=== PATIENT | male | born 1950 | race Caucasian/White ===

== ENCOUNTER 2016-06-23 17:24 | Inpatient (IN) | payer OTHER ==
[~2016-06-23] VITALS: Ht 167.6 cm; Wt 68.5 kg
[2016-06-23 19:04] LABS: PLATELET COUNT 318 x10^3mcL (130-400)
[2016-06-23 19:09] LABS: CALCIUM 8.8 mg/dL (8.5-10.1); CARBON DIOXIDE 27.8 mmol/L (21-32); CREATININE SERUM 1.6 mg/dL (0.7-1.3); POTASSIUM SERUM 4.3 mmol/L (3.5-5.1)
[2016-06-23 19:13] LABS: TOTAL PROTEIN, SERUM 6.2 g/dL (6.4-8.2)
[2016-06-23 19:16] LABS: RED CELL DISTRIBUTION WIDTH 16.8 % (11.5-14.5)
[2016-06-23 19:23] LABS: BAND NEUTROPHIL 2 % (0-10); BASOPHIL 0 % (0-2); MONOCYTE 4 % (0-7); SEGMENTED NEUTROPHILS 76 % (37-75)
[2016-06-23 19:24] LABS: rbc morphology (normal/abnorm) ABNORMAL (NORMAL)
[2016-06-23 19:25] LABS: ALBUMIN 2.8 g/dL (3.4-5.0); BILIRUBIN TOTAL 24.79 mg/dL (0.20-1.00)
[2016-06-23 19:37] LABS: CK-MB 0.6 ng/mL (0-3.6)
[2016-06-23 20:08] LABS: UA SPECIFIC GRAVITY 1.025 (1.005-1.035); microscopic required? YES; urine erythrocyte NEGATIVE (NEGATIVE)
[2016-06-23] MEDS ORDERED: METFORMIN HCL500 MG PO (20:32)
[2016-06-23 21:30] LABS: FREE T4 1.23 ng/dL (0.76-1.46); FREE THYROXINE INDEX 2.4 ug/dL (1.4-4.5); T4(THYROXINE) 7.4 ug/dL (4.7-13.3)
[2016-06-23 21:31] LABS: T3 TOTAL 0.93 ng/mL
[2016-06-23 21:45] VITALS: BP 111/61
[2016-06-23 22:04] VITALS: BP 111/61
[2016-06-24 02:32] LABS: IRON 50 ug/dL (65-170); TOTAL IRON BINDING CAPACITY 254 ug/dL (250-450)
[2016-06-24 03:34] LABS: RED BLOOD CELLS 3.16 M/mm3 (4.52-5.90)
[2016-06-24 05:39] VITALS: BP 99/56
[2016-06-24 06:07] LABS: PLATELET COUNT 289 x10^3mcL (130-400)
[2016-06-24 06:29] LABS: CALCIUM 8.6 mg/dL (8.5-10.1); CARBON DIOXIDE 26.5 mmol/L (21-32); CHLORIDE SERUM 103 mmol/L (98-107); CREATININE SERUM 1.1 mg/dL (0.7-1.3); GFR1 > 60 mL/min; GLUCOSE SERUM 106 mg/dL (74-106); MAGNESIUM 2.1 mg/dL (1.8-2.4); PHOSPHOROUS 3.8 mg/dL (2.5-4.9); POTASSIUM SERUM 3.9 mmol/L (3.5-5.1); SODIUM SERUM 137 mmol/L (136-145)
[2016-06-24 06:40] LABS: RED CELL DISTRIBUTION WIDTH 16.7 % (11.5-14.5)
[2016-06-24 08:43] VITALS: BP 96/50
[2016-06-24 12:13] LABS: ATYPICAL LYMPH 3 %; BAND NEUTROPHIL 2 % (0-10); BASOPHIL 0 % (0-2); MONOCYTE 11 % (0-7); SEGMENTED NEUTROPHILS 68 % (37-75)
[2016-06-24 12:14] LABS: PLATELET MORPHOLOGY PLATELETS NORMAL; rbc morphology (normal/abnorm) ABNORMAL (NORMAL); target cell (codocyte) 2+
[2016-06-24 13:05] VITALS: BP 99/55
[2016-06-24 16:35] VITALS: BP 99/61
[2016-06-24 22:20] VITALS: BP 110/56
[2016-06-25 06:09] LABS: PLATELET COUNT 293 x10^3mcL (130-400)
[2016-06-25 06:29] LABS: CALCIUM 8.6 mg/dL (8.5-10.1); CHLORIDE SERUM 102 mmol/L (98-107); CREATININE SERUM 0.9 mg/dL (0.7-1.3); GFR1 > 60 mL/min; GLUCOSE SERUM 121 mg/dL (74-106); PHOSPHOROUS 3.7 mg/dL (2.5-4.9); POTASSIUM SERUM 4.3 mmol/L (3.5-5.1); SODIUM SERUM 136 mmol/L (136-145)
[2016-06-25 06:33] VITALS: BP 95/53
[2016-06-25 09:48] VITALS: Ht 167.6 cm; Wt 68.5 kg
[2016-06-25 09:50] VITALS: BP 104/55
[2016-06-25 13:55] LABS: ATYPICAL LYMPH 1 %; BAND NEUTROPHIL 2 % (0-10); MONOCYTE 10 % (0-7); SEGMENTED NEUTROPHILS 74 % (37-75)
[2016-06-25 13:56] LABS: PLATELET MORPHOLOGY PLATELETS NORMAL; rbc morphology (normal/abnorm) ABNORMAL (NORMAL); target cell (codocyte) 1+
[2016-06-25 18:59] VITALS: BP 109/66
[2016-06-25 21:38] VITALS: BP 105/59
[2016-06-26 05:49] VITALS: BP 102/56
[2016-06-26 06:15] LABS: PLATELET COUNT 277 x10^3mcL (130-400)
[2016-06-26 06:30] LABS: ALKALINE PHOSPHATASE 618 U/L (46-116); ALT/SGPT 98 U/L (16-63); CALCIUM 8.4 mg/dL (8.5-10.1); CARBON DIOXIDE 29.8 mmol/L (21-32); CHLORIDE SERUM 103 mmol/L (98-107); GFR1 > 60 mL/min; GLUCOSE SERUM 115 mg/dL (74-106); POTASSIUM SERUM 4.6 mmol/L (3.5-5.1); SODIUM SERUM 138 mmol/L (136-145)
[2016-06-26 07:20] LABS: AST/SGOT 112 U/L (15-37)
[2016-06-26 07:26] LABS: ALBUMIN 2.1 g/dL (3.4-5.0); TOTAL PROTEIN, SERUM 5.2 g/dL (6.4-8.2)
[2016-06-26 07:34] LABS: BILIRUBIN TOTAL 23.1 mg/dL (0.20-1.00)
[2016-06-26 10:01] LABS: BAND NEUTROPHIL 2 % (0-10); BASOPHIL 0 % (0-2); MONOCYTE 6 % (0-7); SEGMENTED NEUTROPHILS 83 % (37-75)
[2016-06-26 10:02] LABS: rbc morphology (normal/abnorm) ABNORMAL (NORMAL)
[2016-06-26 10:03] LABS: target cell (codocyte) 2+
[2016-06-26 10:54] VITALS: BP 108/61
[2016-06-26] MEDS ORDERED: NOR10T PO (16:31)
[2016-06-26] MEDS ORDERED: LAC PO (16:32)
[2016-06-26] MEDS ORDERED: LEVAQUIN250 M1 PO (16:32)
[2016-06-26] MEDS ORDERED: THERA TABS1 TAB PO (16:33)
[2016-06-26] MEDS ORDERED: VITC PO (16:33)
[2016-06-26] MEDS ORDERED: METFORMIN HCL500 MG PO (16:33)
[2016-06-26 16:55] VITALS: BP 108/61
== END 2016-06-26 17:36 | disposition home or self-care (01) | DRG 435 ==
LOC: ED 17:24 → MU 20:06 → DU 20:06 → MU 06-25 07:03
PROVIDERS: Emergency Medicine; Internal Medicine Gastroenterology; ADMIT Family Medicine
PROC: BF10YZZ Fluoroscopy of Bile Ducts using Other Contrast (ICD-10-PCS; 2016-06-24)
PROC: 0F798ZZ Dilation of Common Bile Duct, Via Natural or Artificial Opening Endoscopic (ICD-10-PCS; principal; 2016-06-24 13:30)
PROC: 0F798ZZ Dilation of Common Bile Duct, Via Natural or Artificial Opening Endoscopic (ICD-10-PCS; 2016-06-24 13:30)
PROC: 0F768DZ Dilation of Left Hepatic Duct with Intraluminal Device, Via Natural or Artificial Opening Endoscopic (ICD-10-PCS; 2016-06-24 13:30)
PROC: 0FB13ZX Excision of Right Lobe Liver, Percutaneous Approach, Diagnostic (ICD-10-PCS; 2016-06-25)
DX: C22.1 Intrahepatic bile duct carcinoma (principal); K83.1 Obstruction of bile duct; N17.0 Acute kidney failure with tubular necrosis; E43 Unspecified severe protein-calorie malnutrition; N39.0 Urinary tract infection, site not specified; E87.1 Hypo-osmolality and hyponatremia; D68.69 Other thrombophilia; C22.8 Malignant neoplasm of liver, primary, unspecified as to type; E11.65 Type 2 diabetes mellitus with hyperglycemia; D63.8 Anemia in other chronic diseases classified elsewhere; E03.9 Hypothyroidism, unspecified; E78.5 Hyperlipidemia, unspecified; Z68.24 Body mass index [BMI] 24.0-24.9, adult; Z79.84 Long term (current) use of oral hypoglycemic drugs
CPT/HCPCS: 43262; 49180; 82962; 83880; 84439; C1769; C1894; C2625; J0295; J0696; J1610; J2001; J2175; J2250; J3010; J7030; J7040; J7120; Q0092; Q9967